=== PATIENT | male | born 1960 | race Caucasian/White ===

== ENCOUNTER 2024-10-04 08:56 | Outpatient (CLI) | payer MEDICARE ==
[2024-10-04] MEDS ORDERED: Iopamidol 370 76% 100 ML VIAL ONE (10:13)
[2024-10-04] MEDS ORDERED: GASTROGRAFIN 30 ML BOT ONE (10:13)
[2024-10-04 11:14] LABS: Estimated GFR - POC 83.0
== END 2024-10-04 08:57 | disposition home or self-care (01) ==
LOC: CT 08:56
PROVIDERS: ATTEND Internal Medicine Hematology & Oncology
DX: C61 Malignant neoplasm of prostate (principal); C18.2 Malignant neoplasm of ascending colon
CPT/HCPCS: 36415; 71260; 74177; 82565

== ENCOUNTER 2024-11-15 09:40 | Outpatient (CLI) | payer MEDICARE | END 2024-11-15 09:41 | disposition home or self-care (01) | LOC: RAD 09:40 | PROVIDERS: ATTEND Internal Medicine | DX: R06.00 Dyspnea, unspecified (principal) | CPT/HCPCS: 71046 ==

== ENCOUNTER 2024-11-30 07:08 | Day surgery (SDC) | payer MEDICARE ==
[2024-11-29 09:15] VITALS: BMI 31.5
[2024-11-30] MEDS ORDERED: Lidocaine 4% PF 5 ML AMP ONE (07:41)
[2024-11-30 07:58] LABS: #Basophils 0.03 10x3/uL (0.0-0.2); #Eosinophils 0.11 10x3/uL (0.0-0.7); #Monocytes 0.40 10x3/uL (0.11-0.59); #Neutrophils 2.08 10x3/uL (1.40-6.50); %Basophils 0.9 % (0.0-1.0); %Eosinophils 3.2 % (0.0-10.0); %Lymphocytes 23.9 % (21.0-51.0); %Monocytes 11.5 % (0.0-10.0); %Neutrophils 59.9 % (42.0-75.0); Hematocrit 43.1 % (42.0-52.0); Hemoglobin 14.0 g/dL (14.0-18.0); Mean Corpuscular Hemoglobin 29.0 pg (27.0-31.0); Mean Corpuscular Volume 89.4 fL (78.0-98.0); Platelet Count 166 10x3/uL (130-400); Red Blood Cell (RBC) Count 4.82 mill/uL (4.70-6.10); White Blood Cell (WBC) Count 3.47 10x3/uL (4.8-10.8)
[2024-11-30 08:38] LABS: PTT 29.9 sec (22.9-36.1)
[2024-11-30 08:39] LABS: INR-International Normal Ratio 1.0; Prothrombin Time 13.5 sec (12.0-14.7)
[2024-11-30] MEDS ORDERED: Rocuronium Bromide 10 MG/ML (10ML VIAL) ONE (09:20)
[2024-11-30] MEDS ORDERED: PROPOFOL 20 ML ONE (09:20)
[2024-11-30] MEDS ORDERED: fentaNYL PF 100 MCG/2 ML SYRINGE ONE (09:20)
[2024-11-30] MEDS ORDERED: SUCCINYLCHOLINE/SOD CL,ISO/PF 200 MG/10 ML SYRINGE FS ONE (10:01)
[2024-11-30] MEDS ORDERED: Ondansetron PF 4 MG/2 ML Vial ONE (10:06)
== END 2024-11-30 13:18 | disposition home or self-care (01) ==
LOC: SDC 07:08
PROVIDERS: ATTEND Internal Medicine
PROC: 0BCJ8ZZ Extirpation of Matter from Left Lower Lung Lobe, Via Natural or Artificial Opening Endoscopic (ICD-10-PCS; principal; 2024-11-30)
PROC: 0BB68ZX Excision of Right Lower Lobe Bronchus, Via Natural or Artificial Opening Endoscopic, Diagnostic (ICD-10-PCS; 2024-11-30)
DX: J18.9 Pneumonia, unspecified organism (principal); J98.4 Other disorders of lung; I10 Essential (primary) hypertension; E78.00 Pure hypercholesterolemia, unspecified; J45.909 Unspecified asthma, uncomplicated; Z98.890 Other specified postprocedural states; Z90.49 Acquired absence of other specified parts of digestive tract; Z85.46 Personal history of malignant neoplasm of prostate; Z86.718 Personal history of other venous thrombosis and embolism; Z79.899 Other long term (current) drug therapy; Z79.01 Long term (current) use of anticoagulants
CPT/HCPCS: 31624; 31625; 85025; 85610; 85730; 93005; J1100; J2405; J2704; 88104; 88112; 88305; 93010